=== PATIENT | female | born 1955 | race Caucasian/White ===

== ENCOUNTER 2016-12-17 10:18 | Outpatient (CLI) ==
[2016-07-28 09:17] VITALS: BMI 22.4
--- NOTE | 2016-12-17 11:28 | DI ---
Examination: Six images of the cervical spine. Comparison: None available. Reason for study: Cervical disc degeneration. FINDINGS: Cervical spine imaging is obtained from C2-C6. The C6-C7 interspace and C7 vertebral body are not w ell seen secondary to overlying summation artifact. There is degenerative disease with osteophyte f ormation and loss of intervertebral body disc space height most notably C4, C5, and likely C6. No ob vious fracture or listhesis. There is straightening of the cervical spine consistent with spasm. T he dens is intact. No abnormal prevertebral soft tissue swelling. Impression: 1. No obvious fracture or listhesis. 2. Moderate degenerative disease of the lower cervical spine as described.
== END 2016-12-17 10:19 | disposition home or self-care (01) ==
LOC: RAD 10:18
PROVIDERS: ATTEND Pain Medicine Interventional Pain Medicine
DX: M50.220 Other cervical disc displacement, mid-cervical region, unspecified level (principal); M50.320 Other cervical disc degeneration, mid-cervical region, unspecified level; M50.31 Other cervical disc degeneration, high cervical region; M50.33 Other cervical disc degeneration, cervicothoracic region; M47.812 Spondylosis without myelopathy or radiculopathy, cervical region; M47.813 Spondylosis without myelopathy or radiculopathy, cervicothoracic region; M48.06 Spinal stenosis, lumbar region; M51.36 Other intervertebral disc degeneration, lumbar region; M51.37 Other intervertebral disc degeneration, lumbosacral region; M47.816 Spondylosis without myelopathy or radiculopathy, lumbar region; M47.817 Spondylosis without myelopathy or radiculopathy, lumbosacral region

== ENCOUNTER 2017-05-14 14:44 | Outpatient (CLI) ==
[2016-07-28 09:17] VITALS: BMI 22.4
--- NOTE | 2017-05-14 15:20 | DI ---
Exam: Five x-rays of the lumbar spine. Comparison: MRI performed on 08/18/2014. Reason for exam: Low back pain. FINDINGS: No acute fracture or listhesis in the lumbar spine. There is mild multilevel degenerativ e disease with osteophyte formation and intervertebral body disc space height narrowing. Vascular c alcifications are seen within the aorta. There is a normal appearing lumbar lordotic curve. Impression: 1. No acute fracture or listhesis in the lumbar spine. 2. Mild degenerative disease
== END 2017-05-14 14:45 | disposition home or self-care (01) ==
LOC: RAD 14:44
PROVIDERS: ATTEND Nurse Practitioner Family
DX: M54.5 Low back pain (principal)

== ENCOUNTER 2017-05-20 15:39 | Outpatient (CLI) ==
[2016-07-28 09:17] VITALS: BMI 22.4
[2017-05-20 16:45] LABS: BASOPHILS # (AUTO) 0.1 K/uL (0-0.2); BASOPHILS % (AUTO) 1.1 % (0.0-3.0); EOSINOPHILS # (AUTO) 0.2 K/ul (0.0-0.7); EOSINOPHILS % (AUTO) 1.9 % (0.0-7.0); HEMATOCRIT 41.9 % (37.0-47.0); HEMOGLOBIN 14.2 g/dl (12.0-16.0); IMMATURE GRANULOCYTE % (AUTO) 0.3 % (0.0-5.0); LYMPHOCYTES % (AUTO) 34.7 (10.0-50.0); MEAN CORPUSCULAR HEMOGLOBIN 30.2 pg (27.0-31.0); MEAN CORPUSCULAR HGB CONC 33.9 (31.8-35.4); MEAN CORPUSCULAR VOLUME 89.1 fl (81.0-99.0); MONOCYTES # (AUTO) 0.8 K/uL (0.4-2.0); MONOCYTES % (AUTO) 9.6 (0-10); NEUTROPHILS # (AUTO) 4.6 K/ul (2.0-6.9); NEUTROPHILS % (AUTO) 52.4; PLATELET COUNT 381 10^3/uL (140-440); WHITE BLOOD COUNT 8.72 K/ul (4.6-10.2)
[2017-05-20 16:48] LABS: ALBUMIN 3.6 g/dL (3.4-5.0); ALBUMIN/GLOBULIN RATIO 1.09; ANION GAP 18.3; BILIRUBIN,TOTAL 0.37 mg/dL (0.00-1.20); BUN/CREATININE RATIO 11.9; CALCIUM 9.2 mg/dL (8.2-10.2); CHOL/HDL RATIO 3.5 (4.5-5.5); CREATININE 1.26 mg/dL (0.60-1.30); POTASSIUM 4.3 mmol/L (3.5-5.10); TOTAL PROTEIN 6.9 g/dL (5.8-8.1)
== END 2017-05-20 15:40 | disposition home or self-care (01) ==
LOC: LAB 15:39
PROVIDERS: ATTEND Nurse Practitioner Family
DX: E78.5 Hyperlipidemia, unspecified (principal); F41.9 Anxiety disorder, unspecified
CPT/HCPCS: 36415; 80053; 80061; 85025

== ENCOUNTER 2017-06-18 12:34 | Outpatient (CLI) ==
[2016-07-28 09:17] VITALS: BMI 22.4
== END 2017-06-18 12:35 | disposition home or self-care (01) ==
LOC: RAD 12:34
PROVIDERS: ATTEND Nurse Practitioner Family
DX: Z12.31 Encounter for screening mammogram for malignant neoplasm of breast (principal)
CPT/HCPCS: 77067

== ENCOUNTER 2017-10-09 13:02 | Outpatient (CLI) ==
[2016-07-28 09:17] VITALS: BMI 22.4
[2017-10-09 13:18] LABS: BILIRUBIN,URINE Negative (NEGATIVE); KETONES,URINE Negative (NEGATIVE); LEUKOCYTE ESTERASE ,URINE Trace (NEGATIVE); NITRITE,URINE Negative (NEGATIVE); PROTEIN,URINE Negative (NEGATIVE); URINE, BLOOD Trace-intact (NEGATIVE)
[2017-10-09 13:29] LABS: ADD URINE MICROSCOPIC YES
== END 2017-10-09 13:03 | disposition home or self-care (01) ==
LOC: LAB 13:02
PROVIDERS: ATTEND Nurse Practitioner Family
DX: F41.1 Generalized anxiety disorder (principal); F43.9 Reaction to severe stress, unspecified; R10.9 Unspecified abdominal pain; R31.9 Hematuria, unspecified; R35.0 Frequency of micturition
CPT/HCPCS: 81001

== ENCOUNTER 2017-10-13 10:25 | Outpatient (CLI) ==
[2016-07-28 09:17] VITALS: BMI 22.4
--- NOTE | 2017-10-13 11:36 | CT ---
EXAM: CT Abdomen without contrast. CT Pelvis without contrast. HISTORY: Right lower quadrant pain for 1 month. COMPARISON: 08/21/2014. TECHNIQUE: Multiple axial images of the abdomen and pelvis were obtained without intravenous contras t. Images were reformatted in the coronal plane. FINDINGS: Please note that evaluation of the abdominal and pelvic structures is limited due to lack of intravenous contrast. Emphysematous changes seen in the lung bases. Calcified granulomatous changes noted as well. No acu te osseous abnormality is detected. Gallbladder is absent. The liver, pancreas, spleen, and adrenal glands demonstrate normal contour. No calcified renal stones or hydronephrosis detected. Small fat-containing umbilical hernia is present. The bowel is normal in course and caliber without evidence for obstruction or inflammatory process. The appendix is normal. Urinary bladder wall is t hickened. Uterus is absent. No free fluid or free air identified. Atherosclerotic calcifications a re present IMPRESSION: Urinary bladder wall thickening suggests cystitis.
== END 2017-10-13 10:26 | disposition home or self-care (01) ==
LOC: RAD 10:25
PROVIDERS: ATTEND Nurse Practitioner Family
DX: R10.9 Unspecified abdominal pain (principal)

== ENCOUNTER 2018-04-12 13:07 | Outpatient (CLI) ==
[2016-07-28 09:17] VITALS: BMI 22.4
== END 2018-04-12 13:08 | disposition home or self-care (01) ==
LOC: RHC-LAB 13:07
PROVIDERS: ATTEND Nurse Practitioner Family
DX: R53.83 Other fatigue (principal); J44.9 Chronic obstructive pulmonary disease, unspecified; Z72.0 Tobacco use
CPT/HCPCS: 36415; 80053; 80061; 82306; 82607; 84443; 85025

== ENCOUNTER 2018-08-16 12:24 | Outpatient (CLI) ==
[2016-07-28 09:17] VITALS: BMI 22.4
== END 2018-08-16 12:25 | disposition home or self-care (01) ==
LOC: RHC-LAB 12:24
PROVIDERS: ATTEND Nurse Practitioner Family
DX: R25.2 Cramp and spasm (principal)
CPT/HCPCS: 36415; 80053

== ENCOUNTER 2018-08-23 10:16 | Outpatient (CLI) ==
[2016-07-28 09:17] VITALS: BMI 22.4
== END 2018-08-23 10:17 | disposition home or self-care (01) ==
LOC: RAD 10:16
PROVIDERS: ATTEND Nurse Practitioner Family
DX: Z12.31 Encounter for screening mammogram for malignant neoplasm of breast (principal)
CPT/HCPCS: 77067

== ENCOUNTER 2019-07-05 09:53 | Outpatient (CLI) ==
[2016-07-28 09:17] VITALS: BMI 22.4
--- NOTE | 2019-07-05 10:40 | DI ---
EXAM: Four views of the cervical spine. History: Back pain. COMPARISON: 12/17/2016. FINDINGS / IMPRESSION: Cervical spine is visualized to superior endplate of C7. Straightening of the normal cervical lordosis. No significant listhesis. C1-C2 masses are symmetric ally aligned Vertebral body heights are preserved. No acute fracture. No prevertebral soft tissue swelling. Similar advanced DDD at C5-6 with disc height loss and degenerative endplate changes. Moderate DDD a t C4-5. Multilevel bilateral facet arthrosis. Lung apices are clear.
== END 2019-07-05 09:54 | disposition home or self-care (01) ==
LOC: EEVIPCON 09:53 → RAD 09:53
PROVIDERS: ATTEND Nurse Practitioner Family
DX: M54.2 Cervicalgia (principal); M50.30 Other cervical disc degeneration, unspecified cervical region; J44.9 Chronic obstructive pulmonary disease, unspecified; E78.5 Hyperlipidemia, unspecified; F32.9 Major depressive disorder, single episode, unspecified; Z72.0 Tobacco use
CPT/HCPCS: 36415; 80053; 80061; 84443; 85025

== ENCOUNTER 2019-07-05 09:55 | Outpatient (CLI) ==
[2016-07-28 09:17] VITALS: BMI 22.4
== END 2019-07-05 09:56 | disposition home or self-care (01) ==
LOC: RHC-LAB 09:55
PROVIDERS: ATTEND Nurse Practitioner Family
DX: J44.9 Chronic obstructive pulmonary disease, unspecified (principal); E78.5 Hyperlipidemia, unspecified; F32.9 Major depressive disorder, single episode, unspecified; Z72.0 Tobacco use
CPT/HCPCS: 36415; 80053; 80061; 84443; 85025